=== PATIENT | female | born 1945 | race Caucasian/White ===

== ENCOUNTER 2018-01-02 20:30 | Outpatient (CLI) | payer MEDICARE | END 2018-01-02 20:31 | disposition home or self-care (01) | LOC: SLEEPLAB 20:30 | PROVIDERS: ATTEND Internal Medicine Critical Care Medicine | DX: G47.33 Obstructive sleep apnea (adult) (pediatric) (principal); R06.83 Snoring; I10 Essential (primary) hypertension; I48.91 Unspecified atrial fibrillation | CPT/HCPCS: 95810 ==

== ENCOUNTER 2018-01-12 14:30 | Outpatient (CLI) | payer MEDICARE | END 2018-01-12 14:31 | disposition home or self-care (01) | LOC: BICMRI 14:30 | PROVIDERS: ATTEND Anesthesiology Pain Medicine | DX: M48.062 Spinal stenosis, lumbar region with neurogenic claudication (principal); M47.896 Other spondylosis, lumbar region; M99.53 Intervertebral disc stenosis of neural canal of lumbar region | CPT/HCPCS: 72148 ==

== ENCOUNTER 2018-04-01 19:30 | Outpatient (CLI) | payer MEDICARE | END 2018-04-01 19:31 | disposition home or self-care (01) | LOC: SLEEPLAB 19:30 | PROVIDERS: ATTEND Internal Medicine Critical Care Medicine | DX: G47.33 Obstructive sleep apnea (adult) (pediatric) (principal); I10 Essential (primary) hypertension; R09.02 Hypoxemia | CPT/HCPCS: 95806 ==

== ENCOUNTER 2018-04-13 20:30 | Outpatient (CLI) | payer MEDICARE | END 2018-04-13 20:31 | disposition home or self-care (01) | LOC: SLEEPLAB 20:30 | PROVIDERS: ATTEND Internal Medicine Critical Care Medicine | DX: G47.33 Obstructive sleep apnea (adult) (pediatric) (principal) | CPT/HCPCS: 95811 ==

== ENCOUNTER 2018-07-29 09:14 | Outpatient (CLI) | payer MEDICARE | END 2018-07-29 09:15 | disposition home or self-care (01) | LOC: BICMAMMO 09:14 | PROVIDERS: ATTEND Family Medicine | DX: Z13.820 Encounter for screening for osteoporosis (principal); Z78.0 Asymptomatic menopausal state; M54.16 Radiculopathy, lumbar region; R29.898 Other symptoms and signs involving the musculoskeletal system; M85.852 Other specified disorders of bone density and structure, left thigh; M48.061 Spinal stenosis, lumbar region without neurogenic claudication; Z79.52 Long term (current) use of systemic steroids | CPT/HCPCS: 72148; 77080 ==

== ENCOUNTER 2018-09-24 10:38 | Outpatient (CLI) | payer MEDICARE ==
[2018-09-24 13:30] LABS: Hemoglobin 15.2 g/dL (12.0-16.0); Mean Corpuscular HGB CONC 32.5 g/dL (32.0-36.0); Mean Corpuscular Hemoglobin 30.3 pg (27.0-31.0); Mean Corpuscular Volume 93.1 fL (78.0-98.0); Platelet Count 261 thou/uL (130-400); RBC Distribution Width 11.5 % (11.5-14.5); Red Blood Cell (RBC) Count 5.02 mill/uL (4.20-5.40); White Blood Cell (WBC) Count 7.8 thou/uL (4.8-10.8)
[2018-09-24 13:36] LABS: Prothrombin Time 13.7 SEC (12.0-14.7)
[2018-09-24 14:03] LABS: Anion Gap 12 mmol/L (10-20); BUN (Urea Nitrogen) 16 mg/dL (9.8-20.1); Calc. Creatinine Clearance 0 mL/min (70-130); Calcium 9.4 mg/dL (7.8-10.44); Carbon Dioxide 27 mmol/L (23-31); Chloride 103 mmol/L (98-107); Estimated GFR-MDRD 65; Glucose 81 mg/dL (83-110); Potassium 4.1 mmol/L (3.5-5.1); Sodium 138 mmol/L (136-145)
--- NOTE | 2018-09-27 11:52 | EKG ---
Test Reason : Blood Pressure : / mmHG Vent. Rate : 064 BPM Atrial Rate : 064 BPM P-R Int : 174 ms QRS Dur : 078 ms QT Int : 404 ms P-R-T Axes : 054 031 016 degrees QTc Int : 416 ms Normal sinus rhythm Nonspecific T wave abnormality Low voltage QRS Abnormal ECG Confirmed by CHASIDY ANDRADE ([id number]) on 09/27/2018 11:52:35 AM Referred By: SHERLYN Confirmed By:CHASIDY ANDRADE
== END 2018-09-24 10:39 | disposition home or self-care (01) ==
LOC: LABBT 10:38
PROVIDERS: ATTEND Surgery
DX: Z01.818 Encounter for other preprocedural examination (principal); M51.16 Intervertebral disc disorders with radiculopathy, lumbar region
CPT/HCPCS: 80048; 85027; 85610; 85730; 93005; 93010

== ENCOUNTER 2018-09-30 09:52 | Day surgery (SDC) | payer MEDICARE ==
[2018-09-24 11:47] VITALS: BMI 32.5
[2018-09-30] MEDS ORDERED: Scopolamine 1.5 mg/72 hour Patch ONE (10:12)
[2018-09-30] MEDS ORDERED: CEFAZOLIN 2 GM/50 ML BAG ONE (10:12)
[2018-09-30] MEDS ORDERED: Sodium Chloride 0.9% 10 ML ONE (10:27)
[2018-09-30] MEDS ORDERED: Bacitracin Zinc Ointment 30 gm TUBE ONE (10:27)
[2018-09-30] MEDS ORDERED: Thrombin 5000 UNITS/5 ML VIAL ONE (10:27)
[2018-09-30] MEDS ORDERED: Fentanyl 100 MCG/2 ML VIAL ONE ×2 (11:01→15:14)
[2018-09-30] MEDS ORDERED: PACU-Morphine 4MG/ML VIAL SLOW IVP PRN (12:03)
[2018-09-30] MEDS ORDERED: Ondansetron HCl/PF 4 MG/2 ML Vial IVP PRN (12:03)
[2018-09-30] MEDS ORDERED: HYDROmorphone 2 MG/ML VIAL SLOW IVP PRN (12:03)
[2018-09-30] MEDS ORDERED: Meperidine HCl/PF 25 MG/ML VIAL SLOW IVP PRN (12:03)
[2018-09-30] MEDS ORDERED: Promethazine HCl 25 MG/ML VIAL IM PRN ×2 (12:03→13:23)
[2018-09-30] MEDS ORDERED: Promethazine HCl 25 MG/ML VIAL SLOW IVP PRN (12:03)
[2018-09-30] MEDS ORDERED: Morphine Sulfate 2 MG/ML SYRINGE SLOW IVP PRN (12:03)
[2018-09-30] MEDS ORDERED: PHENYLEPHRINE-NS 100 MCG/ML 10 ML SYRINGE ONE (12:37)
--- NOTE | 2018-09-30 13:10 | OP ---
DATE OF PROCEDURE: 09/30/2018 OR: OR #12. WOUND TYPE: Type 1 wound. SURGEON: Syed Martinez M.D. AUTO CLAIM REPRESENTATIVE: Faizan Sadler PA-C. PREPROCEDURE DIAGNOSES: Right L5 radiculopathy with right L4-L5 stenosis, spondylosis. PROCEDURE: 1. Right L4-L5 hemilaminotomy, foraminotomy, and diskectomy. 2. Use of operative microscope for microdissection. DESCRIPTION OF PROCEDURE: After informed consent was obtained from the patient, the patient brought to OR 12. Proper patient pause and identification was carried out. She was placed under excellent g eneral endotracheal anesthesia, positioned prone on the OR table. All appropriate points were padded . We identified a midline linear sal[place] to allow for approach to the L4-L5 segment. This region was s terilely cleansed, prepared, and draped. Proper patient pause and identification was carried out. W e then opened up the right L4-L5, incision was then made and with a combination of sharp, monopolar a nd blunt dissection proceeded over the right L4-L5 hemilamina. Localization film confirmed our area of interest. We then performed a right L4-L5 hemilaminotomy, foraminotomy. The microscope was broug ht in for microdissection. The right L5 nerve root was decompressed in its entirety. We then gently retracted the nerve root and a small disk fragments were removed. There was no large extrusion on M RI nor was one found intraoperatively, we had excellent decompression of the nerve root. Copious irr igation occurred throughout as did maximizing hemostasis. The wound was then closed in anatomic laye rs following the sprinkling of vancomycin powder. The patient then emerged from anesthesia.
[2018-09-30] MEDS ORDERED: Fleet Enema 133 ML BOT PR PRN (13:23)
[2018-09-30] MEDS ORDERED: Bisacodyl 10 MG SUPP PR PRN (13:23)
[2018-09-30] MEDS ORDERED: Mag-Al 1200 mg/1200 mg/30 ML UDCUP PO PRN (13:23)
[2018-09-30] MEDS ORDERED: HYDROcodone/Acetaminophen 7.5/325 mg Tablet PO PRN (13:23)
[2018-09-30] MEDS ORDERED: Milk Of Magnesia 30 ML UDCUP PO PRN (13:23)
[2018-09-30] MEDS ORDERED: tiZANidine HCl 4 MG TAB PO PRN (13:23)
[2018-09-30] MEDS ORDERED: Acetaminophen 325 MG TAB PO PRN (13:23)
[2018-09-30] MEDS ORDERED: traMADol HCl 50 MG TAB PO PRN (13:23)
[2018-09-30] MEDS ORDERED: Acetaminophen/Codeine 30-300mg Tablet PO PRN (13:23)
[2018-09-30] MEDS ORDERED: Gabapentin 100 MG CAP PO PRN (13:25)
[2018-09-30] MEDS ORDERED: Promethazine HCl 25 MG/ML VIAL ONE (13:49)
[2018-09-30] MEDS: CEFAZOLIN 2 GM/50 ML BAG IVPB SCH (18:54)
[2018-09-30] MEDS: Sodium Chloride 0.9% 1,000 ML IV SCH (22:35)
[2018-10-01] MEDS: CEFAZOLIN 2 GM/50 ML BAG IVPB SCH (02:56)
[2018-10-01] MEDS: Sodium Chloride 0.9% 1,000 ML IV SCH (03:49)
[2018-10-01 08:31] VITALS: BP 98/59; TEMP 97.6
--- NOTE | 2018-10-01 13:15 | DIS ---
DATE OF ADMISSION: 09/30/2018 DATE OF DISCHARGE: 10/01/2018 DISCHARGE DIAGNOSES: Lumbar radiculopathy with lumbar herniated nucleus pulposus. HOSPITAL COURSE: Ms. Davis was admitted to [facility] to undergo a right L4-L5 hemilaminot rogelio, foraminotomy and diskectomy. The patient's procedure was without complication and she required 1 overnight stay. At the time of discharge, she met criteria and had good strength in bilateral lowe r extremities and was up walking laps around the third floor. She was very pleased with her outcome postoperatively. She did have continued numbness into the buttock and foot on the right, but states she expected this and understands it will improve with time. Appropriate patient education was provi ded to the patient and outpatient followups. She understood to call the office with questions or con cerns, otherwise she is doing well postoperatively.
== END 2018-10-01 10:45 | disposition home or self-care (01) ==
LOC: SDC 09:52 → UNDOADMOB 16:29 → SJJU 16:29 → UNDODISOB 10-01 10:45 → SDC 10-01 10:45
PROVIDERS: ATTEND Surgery
PROC: 0SB20ZZ Excision of Lumbar Vertebral Disc, Open Approach (ICD-10-PCS; principal; 2018-09-30)
DX: M51.16 Intervertebral disc disorders with radiculopathy, lumbar region (principal); M47.26 Other spondylosis with radiculopathy, lumbar region; M48.062 Spinal stenosis, lumbar region with neurogenic claudication; M85.80 Other specified disorders of bone density and structure, unspecified site; E55.9 Vitamin D deficiency, unspecified; Z79.810 Long term (current) use of selective estrogen receptor modulators (SERMs)
CPT/HCPCS: 76001; 96374; J0131; J2550; J3010; J3370; J3490

== ENCOUNTER 2019-03-14 11:03 | Outpatient (CLI) | payer MEDICARE ==
--- NOTE | 2019-03-14 12:08 | MRI ---
MRI Cervical spine without contrast: HISTORY: Neck pain rating down left upper extremity. Symptoms have been present for years. Cervical radiculopa thy. Spondylosis. COMPARISON: 06/06/2017 FINDINGS: The craniocervical junction is unremarkable. No significant cord signal abnormality. Paravertebral soft tissues have a normal appearance and normal signal intensity. Susceptibility artifact is again seen involving the anterior aspect lower cervical spine related to a nterior cervical fusion of the C6 and C7 vertebral bodies. C1-2:Degenerative changes are again seen at the articulation of the odontoid with anterior arch of C1 . Central canal at this level as well as neural foramina are patent. C2-3: There is no disc bulge or disc herniation. The central spinal canal and neural foramina are pat ent. C3-4: There is loss of intervertebral disc height. Disc osteophyte complex is present with uncinate p rocess hypertrophy on the left. Mild endplate degenerative changes are present at this level. This results in effacement of the ventral subarachnoid space. There is mild right and mild to moderate lef t-sided neural foraminal narrowing with probable mild progression in left-sided neural foraminal narrowing from prior exam. C4-5: There is loss of intervertebral disc height. Endplate degenerative changes are present. There i s broad-based disc osteophyte complex again noted. There is central disc protrusion as well. Findings again efface the ventral subarachnoid space and result in slight mass effect on the central aspect of the spinal cord. Mild bilateral neural foraminal narrowing is again seen. C5-6: There is a mild disc osteophyte complex which slightly effaces the ventral subarachnoid space b ut does not contact the spinal cord. Mild uncinate process hypertrophy is present. Minimal bilateral neural foraminal narrowing is present. Findings are stable when compared to prior exam. C6-7: Central spinal canal and neural foramina are widely patent. C7-T1: No disc bulge or disc herniation. Central spinal canal and neural foramina are patent. IMPRESSION: Multilevel degenerative changes predominantly involving the upper cervical spine which have not signi ficantly progressed when compared to the prior exam. There is mild to moderate left-sided neural foraminal narrowing at the C3-4 level with mild mass effect on the central anterior spinal cord at th e C4-5 level due to disc osteophyte complex and central disc protrusion. Normal signal intensity is present in the spinal cord at this level
== END 2019-03-14 11:04 | disposition home or self-care (01) ==
LOC: SCSMRI 11:03
PROVIDERS: ATTEND Family Medicine
DX: M47.22 Other spondylosis with radiculopathy, cervical region (principal); M48.02 Spinal stenosis, cervical region; M25.78 Osteophyte, vertebrae; M50.121 Cervical disc disorder at C4-C5 level with radiculopathy
CPT/HCPCS: 72141

== ENCOUNTER 2019-03-22 09:55 | Outpatient (CLI) | payer MEDICARE ==
--- NOTE | 2019-03-22 10:18 | MMO ---
Bilateral MAMMO Bilat Screen [facility]. CLINICAL HISTORY: Patient is 74 years old and is seen for screening. The patient has the following family history of breast cancer: mother, at age 65. The patient has no personal history of cancer. VIEWS: The views performed were: bilateral craniocaudal and bilateral mediolateral oblique. FILMS COMPARED: The present examination has been compared to prior imaging studies performed at [facility] on 01/19/2016, and at [place] [address] on 12/10/2012 and 10/12/2014. This study has been interpreted with the assistance of computer-aided detection. MAMMOGRAM FINDINGS: Finding 1: There are stable benign appearing calcifications seen in both breasts. Finding 2: There are stable benign appearing densities seen in both breasts. There are no suspicious masses, suspicious calcifications, or new areas of architectural distortion. IMPRESSION: THERE IS NO MAMMOGRAPHIC EVIDENCE OF MALIGNANCY. A ROUTINE FOLLOW-UP MAMMOGRAM IN 1 YEAR IS RECOMMENDED. ACR BI-RADS Category 2 - Benign finding MAMMOGRAPHY NOTE: 1. A negative mammogram report should not delay a biopsy if a dominant of clinically suspicious mass is present. 2. Approximately 10% to 15% of breast cancers are not detected by mammography. 3. Adenosis and dense breasts may obscure an underlying neoplasm.
== END 2019-03-22 09:56 | disposition home or self-care (01) ==
LOC: SCSMAMMO 09:55
PROVIDERS: ATTEND Family Medicine
DX: Z12.31 Encounter for screening mammogram for malignant neoplasm of breast (principal); Z80.3 Family history of malignant neoplasm of breast
CPT/HCPCS: 77067

== ENCOUNTER 2019-07-01 11:39 | Emergency (ER) | payer MEDICARE ==
[2019-07-01] MEDS ORDERED: Ondansetron PF 4 MG/2 ML Vial ONE (12:26)
[2019-07-01 12:38] LABS: #Lymphocytes 0.4 thou/uL (1.20-3.40); #Monocytes 0.4 thou/uL (0.11-0.59); #Neutrophils 9.9 thou/uL (1.40-6.50); %Basophils 0.4 % (0.0-1.0); %Eosinophils 0.3 % (0.0-10.0); %Lymphocytes 3.5 % (21.0-51.0); %Neutrophils 91.8 % (42.0-75.0); Hemoglobin 15.2 g/dL (12.0-16.0); Mean Corpuscular HGB CONC 32.5 g/dL (32.0-36.0); Mean Corpuscular Hemoglobin 29.5 pg (27.0-31.0); Mean Corpuscular Volume 90.7 fL (78.0-98.0); Mean Platelet Volume 7.3 fL (7.4-10.4); Platelet Count 258 thou/uL (130-400); RBC Distribution Width 12.2 % (11.5-14.5); Red Blood Cell (RBC) Count 5.16 mill/uL (4.20-5.40); White Blood Cell (WBC) Count 10.8 thou/uL (4.8-10.8)
[2019-07-01 12:49] LABS: ALT (SGPT) 38 U/L (8-55); AST (SGOT) 26 U/L (5-34); Albumin 4.1 g/dL (3.4-4.8); Alkaline Phosphatase 88 U/L (40-150); Anion Gap 16 mmol/L (10-20); BUN (Urea Nitrogen) 22 mg/dL (9.8-20.1); Bilirubin, Total 1.1 mg/dL (0.2-1.2); Calc. Creatinine Clearance 0 mL/min (70-130); Calcium 8.8 mg/dL (7.8-10.44); Carbon Dioxide 21 mmol/L (23-31); Chloride 105 mmol/L (98-107); Estimated GFR-MDRD 67; Globulin 2.5 g/dL (2.4-3.5); Glucose 107 mg/dL (83-110); Lipase 18 U/L (8-78); Potassium 4.4 mmol/L (3.5-5.1); Protein, Total 6.6 g/dL (6.0-8.3); Sodium 138 mmol/L (136-145)
[2019-07-01 14:19] LABS: Bilirubin Negative (Negative); Blood, Urine Trace (Negative); Glucose, Urine (Dipstick) Negative (Negative); Leukocyte Trace (Negative); Nitrite Negative (Negative); Protein, Urine (Dipstick) Trace mg/dL (Neg-Trace); Urobilinogen 0.2 mg/dL (Less than 2)
[2019-07-01 14:23] LABS: Clarity Hazy (Clear)
[2019-07-01 14:25] LABS: Bacteria/HPF 1+ HPF (None Seen); RBC/HPF 0-3 HPF (0-3)
== END 2019-07-01 15:07 | disposition home or self-care (01) ==
LOC: SCSER 11:39
DX: K52.9 Noninfective gastroenteritis and colitis, unspecified (principal); I49.9 Cardiac arrhythmia, unspecified; I48.91 Unspecified atrial fibrillation; I48.92 Unspecified atrial flutter; Z79.52 Long term (current) use of systemic steroids; Z79.899 Other long term (current) drug therapy
CPT/HCPCS: 80053; 81003; 81015; 83605; 83690; 84484; 85025; 87086; 96361; 96374; J2405

== ENCOUNTER 2019-08-19 13:40 | Outpatient (CLI) | payer MEDICARE ==
--- NOTE | 2019-08-19 15:13 | MRI ---
MR of the right hip without contrast INDICATION: History of right hip pain that radiates to front for many months. Comparison: None FINDINGS: There is moderate degenerative arthrosis of the right hip. There is mild degenerative montano e of the left hip. No acute fracture is demonstrated. There is moderate to severe multilevel spondylosis of the lumbar spine. There is a full-thickness, partial width tear involving the posterio r to mid right gluteus minimus tendon at the insertion with associated trochanteric bursitis. There is tendinosis involving the right gluteus medius tendon. No iliopsoas bursitis is evident. No enlarge d lymph nodes are evident. The rectus femoris and hamstring origin appears within normal limits. No enlarged lymph nodes demonstrated. There is subchondral cystlike abnormalities involving the acetabul um of the right hip particularly anterosuperiorly. There is mild muscular atrophy of the right gluteus minimus musculature. There are scattered diverticula involving the colon. IMPRESSION: 1. 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 2. Full-thickness partial width tear of the posterior to mid right gluteus minimus tendinous insertio n with associated trochanteric bursitis. There is mild right gluteus medius tendinosis. 3. Colonic diverticulosis Transcribed Date/Time: 08/19/2019 4:09 PM
== END 2019-08-19 13:41 | disposition home or self-care (01) ==
LOC: SCSMRI 13:40
PROVIDERS: ATTEND Family Medicine
DX: M51.36 Other intervertebral disc degeneration, lumbar region (principal); M16.11 Unilateral primary osteoarthritis, right hip; S76.011A Strain of muscle, fascia and tendon of right hip, initial encounter; K57.30 Diverticulosis of large intestine without perforation or abscess without bleeding

== ENCOUNTER 2020-09-05 09:18 | Outpatient (CLI) | payer MEDICARE ==
--- NOTE | 2020-09-05 10:29 | MMO ---
Bilateral MAMMO Bilat Screen [facility]. CLINICAL HISTORY: Patient is 75 years old and is seen for screening. The patient has the following family history of breast cancer: mother, at age 65. The patient has no personal history of cancer. VIEWS: The views performed were: bilateral craniocaudal with tomosynthesis and bilateral mediolateral oblique with tomosynthesis. FILMS COMPARED: The present examination has been compared to prior imaging studies performed at [facility] on 03/22/2019, at [facility] on 01/19/2016, and at [place] [id number] on 12/10/2012 and 10/12/2014. This study has been interpreted with the assistance of computer-aided detection. MAMMOGRAM FINDINGS: There are scattered fibroglandular densities. There are stable benign appearing calcifications seen in both breasts. There are no suspicious masses, suspicious calcifications, or new areas of architectural distortion. IMPRESSION: A ROUTINE FOLLOW-UP MAMMOGRAM IN 1 YEAR IS RECOMMENDED. THE RESULTS OF THIS EXAM WERE SENT TO THE PATIENT. ACR BI-RADS Category 2 - Benign finding MAMMOGRAPHY NOTE: 1. A negative mammogram report should not delay a biopsy if a dominant of clinically suspicious mass is present. 2. Approximately 10% to 15% of breast cancers are not detected by mammography. 3. Adenosis and dense breasts may obscure an underlying neoplasm. Reported by: MARTY LEIJA MD Electonically Signed: [id number]
--- NOTE | 2020-09-05 11:10 | ULT ---
GALLBLADDER ULTRASOUND: HISTORY: Primary biliary cirrhosis. FINDINGS: The liver demonstrates increased echogenicity consistent with fatty infiltration without focal mass o r intrahepatic ductal dilatation. The gallbladder, right kidney, and pancreas appear normal. No sherine e fluid is seen in the Morison's pouch. The common duct measures 4 mm in diameter. IMPRESSION: 1. Fatty liver. 2. No evidence of cholelithiasis. POS: [facility]
== END 2020-09-05 09:19 | disposition home or self-care (01) ==
LOC: BICULT 09:18
PROVIDERS: ATTEND Family Medicine
DX: Z12.31 Encounter for screening mammogram for malignant neoplasm of breast (principal); K74.3 Primary biliary cirrhosis; K76.0 Fatty (change of) liver, not elsewhere classified; Z80.3 Family history of malignant neoplasm of breast; R73.09 Other abnormal glucose; M85.80 Other specified disorders of bone density and structure, unspecified site; D89.89 Other specified disorders involving the immune mechanism, not elsewhere classified; E78.9 Disorder of lipoprotein metabolism, unspecified
CPT/HCPCS: 36415; 76705; 77063; 77067; 80053; 80061; 81003; 81015; 82306; 83036; 84439; 84443; 85025

== ENCOUNTER 2021-11-26 13:51 | Outpatient (CLI) | payer MEDICARE | END 2021-11-26 13:52 | disposition home or self-care (01) | LOC: BICMAMMO 13:51 | PROVIDERS: ATTEND Family Medicine | DX: Z12.31 Encounter for screening mammogram for malignant neoplasm of breast (principal); Z78.0 Asymptomatic menopausal state; Z13.820 Encounter for screening for osteoporosis; Z80.3 Family history of malignant neoplasm of breast | CPT/HCPCS: 77063; 77067; 77080 ==

== ENCOUNTER 2022-05-13 12:57 | Outpatient (CLI) | payer MEDICARE ==
[~2022-05-13 12:57] MED LIST: Gadobenate Dimeglumine 529 MG/1 ML (20ML VIAL) ONE
== END 2022-05-13 12:58 | disposition home or self-care (01) ==
LOC: BICMRI 12:57
PROVIDERS: ATTEND Physician Assistant
DX: H53.9 Unspecified visual disturbance (principal); R42 Dizziness and giddiness; R26.89 Other abnormalities of gait and mobility
CPT/HCPCS: 70553; 82565; A9577

== ENCOUNTER 2022-10-10 10:05 | Outpatient (CLI) | payer MEDICARE ==
[2022-10-10] MEDS ORDERED: Iopamidol-370 76% 500 ML 1 ML ONE (11:27)
== END 2022-10-10 10:06 | disposition home or self-care (01) ==
LOC: BICCT 10:05
PROVIDERS: ATTEND Internal Medicine Gastroenterology
DX: K76.0 Fatty (change of) liver, not elsewhere classified (principal); Z12.11 Encounter for screening for malignant neoplasm of colon; K59.00 Constipation, unspecified; K21.9 Gastro-esophageal reflux disease without esophagitis; R10.30 Lower abdominal pain, unspecified; I48.91 Unspecified atrial fibrillation; K57.30 Diverticulosis of large intestine without perforation or abscess without bleeding
CPT/HCPCS: 74177; 82565

== ENCOUNTER 2022-12-22 10:38 | Outpatient (CLI) | payer MEDICARE | END 2022-12-22 10:39 | disposition home or self-care (01) | LOC: BICMAMMO 10:38 | PROVIDERS: ATTEND Family Medicine | DX: Z12.31 Encounter for screening mammogram for malignant neoplasm of breast (principal); R92.1 Mammographic calcification found on diagnostic imaging of breast; Z80.3 Family history of malignant neoplasm of breast | CPT/HCPCS: 77063; 77067 ==

== ENCOUNTER 2023-01-26 14:24 | Outpatient (CLI) | payer MEDICARE | END 2023-01-26 14:25 | disposition home or self-care (01) | LOC: SCSMRI 14:24 | PROVIDERS: ATTEND Anesthesiology Pain Medicine | DX: M70.61 Trochanteric bursitis, right hip (principal); M47.814 Spondylosis without myelopathy or radiculopathy, thoracic region; M47.815 Spondylosis without myelopathy or radiculopathy, thoracolumbar region; M47.816 Spondylosis without myelopathy or radiculopathy, lumbar region; M47.817 Spondylosis without myelopathy or radiculopathy, lumbosacral region; M25.78 Osteophyte, vertebrae; M51.36 Other intervertebral disc degeneration, lumbar region; M51.27 Other intervertebral disc displacement, lumbosacral region | CPT/HCPCS: 72148 ==

== ENCOUNTER 2024-08-25 14:42 | Outpatient (CLI) | payer MEDICARE | END 2024-08-25 14:43 | disposition home or self-care (01) | LOC: BICMAMMO 14:42 | PROVIDERS: ATTEND Family Medicine | DX: N64.4 Mastodynia (principal); N60.42 Mammary duct ectasia of left breast; N64.52 Nipple discharge | CPT/HCPCS: 76642; 77065; G0279 ==